=== PATIENT | female | born 1985 | race African-American/Black ===

== ENCOUNTER 2017-03-16 13:02 | Emergency (ER) | payer BC ==
[2017-03-16 13:10] VITALS: BP 105/69
[2017-03-16] MEDS ORDERED: MOTRIN PO ONE (13:16)
[2017-03-16] MEDS ORDERED: AFRIN NS ONE (13:18)
[2017-03-16] MEDS ORDERED: AUGMENTIN 875 MG PO ONE (13:19)
--- NOTE | 2017-03-16 13:19 | Emergency Department Report ---
- General Chief Complaint: Upper Respiratory Infection Stated Complaint: SINUSITIS,NASAL INFLAMMATION Time Seen by Provider: 03/16/17 13:12 Source: patient Mode of arrival: Ambulatory Limitations: No Limitations - History of Present Illness Initial Comments: 31-year-old female past medical history sinusitis with deviated septum presents with complaint of sinus congestion nasal discharge or rhinorrhea subjective fever chills. Patient states that she has had sinusitis in the past and this feels similar to her prior episodes. Denies any nausea or vomiting is complaining of sinus pain and congestion. States she has sinus surgery for correction of a deviated septum approximately one year ago MD Complaint: cough, rhinorrhea, nasal congestion, sinus pain Onset/Timin -: days(s) Severity: moderate Severity scale (0 -10): 6 Consistency: constant Improves With: NSAID Associated Symptoms: fever, rhinorrhea, nasal congestion - Related Data Previous Rx's Medication Instructions Recorded Last Taken Type Gentamicin 0.3% Ophth Soln 2 drops OP Q4H 5 Days 11/03/14 Unknown Rx Amoxicillin/K Clav Tab [Augmentin 1 tab PO Q12HR #14 tab 03/16/17 Unknown Rx 875 mg] Azelastine 0.1% (Nf) [Astelin (Nf)] 137 mcg NS 2XWHS PRN #1 bottle 03/16/17 Unknown Rx Fluticasone [Flonase] 1 spray NS QDAY PRN #1 bottle 03/16/17 Unknown Rx Ibuprofen [Motrin] 600 mg PO Q8H PRN #30 tablet 03/16/17 Unknown Rx Loratadine [Claritin] 10 mg PO DAILY #30 tablet 03/16/17 Unknown Rx Allergies Allergy/AdvReac Type Severity Reaction Status Date / Time No Known Allergies Allergy Unverified 11/03/14 21:52 ED Review of Systems ROS: Stated complaint: SINUSITIS,NASAL INFLAMMATION Other details as noted in HPI ENT: congestion ED Past Medical Hx - Past Medical History Previous Medical History?: No - Surgical History Past Surgical History?: No - Social History Smoking Status: Never Smoker Substance Use Type: None - Medications Home Medications: Home Medications Medication Instructions Recorded Confirmed Last Taken Type Gentamicin 0.3% Ophth Soln 2 drops OP Q4H 5 Days 11/03/14 Unknown Rx Amoxicillin/K Clav Tab [Augmentin 1 tab PO Q12HR #14 tab 03/16/17 Unknown Rx 875 mg] Azelastine 0.1% (Nf) [Astelin (Nf)] 137 mcg NS 2XWHS PRN #1 bottle 03/16/17 Unknown Rx Fluticasone [Flonase] 1 spray NS QDAY PRN #1 bottle 03/16/17 Unknown Rx Ibuprofen [Motrin] 600 mg PO Q8H PRN #30 tablet 03/16/17 Unknown Rx Loratadine [Claritin] 10 mg PO DAILY #30 tablet 03/16/17 Unknown Rx ED Physical Exam - General Limitations: No Limitations General appearance: alert, in no apparent distress - Head Head exam: Present: atraumatic, normocephalic - Eye Eye exam: Present: normal appearance, PERRL, EOMI - ENT ENT exam: Present: mucous membranes moist - Expanded ENT Exam Expanded Ear exam: Present: other (nasal turbinates injected, no septal hematoma, + maxillary sinus tenderness) - Neck Neck exam: Present: normal inspection - Respiratory Respiratory exam: Present: normal lung sounds bilaterally. Absent: respiratory distress - Cardiovascular Cardiovascular Exam: Present: regular rate, normal rhythm. Absent: systolic murmur, diastolic murmur, rubs, gallop - GI/Abdominal GI/Abdominal exam: Present: soft, normal bowel sounds - Extremities Exam Extremities exam: Present: normal inspection, full ROM - Back Exam Back exam: Present: normal inspection, full ROM - Neurological Exam Neurological exam: Present: alert, oriented X3 - Psychiatric Psychiatric exam: Present: normal affect, normal mood - Skin Skin exam: Present: warm, dry, intact, normal color. Absent: rash ED Course Vital Signs 03/16/17 13:07 Temperature 98.7 F Pulse Rate 110 H Respiratory 16 Rate Blood Pressure 105/69 O2 Sat by Pulse 100 Oximetry ED Medical Decision Making - Medical Decision Making A/P: Sinusitis 1- 2- 3- 4- 5- Critical care attestation.: If time is entered above; I have spent that time in minutes in the direct care of this critically ill patient, excluding procedure time. ED Disposition Clinical Impression: Sinusitis, acute Qualifiers: Sinusitis location: maxillary Recurrence: recurrent Qualified Code(s): J01.01 - Acute recurrent maxillary sinusitis Disposition: DISCHARGED TO HOME OR SELFCARE Is pt being admited?: No Does the pt Need Aspirin: No Condition: Stable Instructions: Sinusitis (ED), Acute Bacterial Rhinosinusitis (ED) Prescriptions: Amoxicillin/K Clav Tab [Augmentin 875 mg] 1 tab PO Q12HR #14 tab Azelastine 0.1% (Nf) [Astelin (Nf)] 137 mcg NS 2XWHS PRN #1 bottle PRN Reason: Congestion Fluticasone [Flonase] 1 spray NS QDAY PRN #1 bottle PRN Reason: Nasal Congestion Ibuprofen [Motrin] 600 mg PO Q8H PRN #30 tablet PRN Reason: Pain Loratadine [Claritin] 10 mg PO DAILY #30 tablet Referrals: [facility] [Provider Group] - 3-[facility] - 3-5 Days DOUGLAS ZHANG MD [Staff Physician] - 3-5 Days Time of Disposition: 13:22
[2017-03-16] MEDS ORDERED: DECADRON IM ONE (16:30)
== END 2017-03-16 17:19 | disposition home or self-care (01) ==
LOC: ED 13:02
DX: J01.01 Acute recurrent maxillary sinusitis (principal)
CPT/HCPCS: 96372; 99282; J1100

== ENCOUNTER 2017-08-15 12:08 | Emergency (ER) | payer BC ==
[2017-08-15 12:22] VITALS: BP 115/80
--- NOTE | 2017-08-15 13:37 | XRay Report ---
ABDOMINAL SERIES WITH CXR THREE VIEWS: 08/15/17 12:08:00 CLINICAL: Abdominal pain. FINDINGS: Supine upright views demonstrate a normal bowel gas pattern . No distended bowel or air-fluid levels. No pneumoperitoneum. No mass or suspicious calcifications.Lumbar levoscoliosis. Normal heart and lungs. Thoracic dextroscoliosis. IMPRESSION: Negative chest and abdomen.
--- NOTE | 2017-08-15 13:39 | XRay Report ---
SOFT TISSUE NECK TWO VIEWS: 08/15/17 12:08:00 CLINICAL: Swallowed foreign body. FINDINGS: Normal bones and soft tissues. Laryngeal cartilage calcification at L4-5. No foreign body. No soft tissue air or mediastinal air. IMPRESSION: Negative for foreign body.
--- NOTE | 2017-08-15 14:02 | Emergency Department Report ---
ED Abdominal Pain HPI - General Chief Complaint: Chest Pain Stated Complaint: SWOLLOW FOREIGN OBJECTS,CHEST PAIN Time Seen by Provider: 08/15/17 12:49 Source: patient Mode of arrival: Ambulatory Limitations: No Limitations - History of Present Illness Initial Comments: 31-year-old female past medical history scoliosis presents with complaint of esophageal discomfort in central chest. Patient states that part of her metallic braces dislodged and she swallowed the segments which was less than 2 cm in length Th night, approximately 48 hours ago. Patient is awake alert oriented speaking in full sentences states she has been eating and drinking without significant difficulty since this event. Denies any bloody vomitus denies any melena denies any hematochezia. Denies abdominal pain but does state she is having intermittent esophageal burning. Denies nausea or vomiting. Denies shortness of breath. No visible trismus or drooling on clinical exam during interview. Patient appears comfortable in examination room. MD Complaint: abdominal pain Onset/Timin -: days(s) Severity: moderate Severity scale (0 -10): 5 Quality: burning Improves With: nothing Worsens With: nothing Associated Symptoms: denies other symptoms - Related Data Previous Rx's Medication Instructions Recorded Last Taken Type Gentamicin 0.3% Ophth Soln 2 drops OP Q4H 5 Days 11/03/14 Unknown Rx Amoxicillin/K Clav Tab [Augmentin 1 tab PO Q12HR #14 tab 03/16/17 Unknown Rx 875 mg] Azelastine 0.1% (Nf) [Astelin (Nf)] 137 mcg NS 2XWHS PRN #1 bottle 03/16/17 Unknown Rx Fluticasone [Flonase] 1 spray NS QDAY PRN #1 bottle 03/16/17 Unknown Rx Ibuprofen [Motrin] 600 mg PO Q8H PRN #30 tablet 03/16/17 Unknown Rx Loratadine [Claritin] 10 mg PO DAILY #30 tablet 03/16/17 Unknown Rx Famotidine [Pepcid] 20 mg PO BID PRN #30 tablet 08/15/17 Unknown Rx Lidocaine Viscous 2% 15 ml MM Q6H PRN #1 bottle 08/15/17 Unknown Rx Sucralfate [Carafate] 1 gm PO Q6HR PRN #1 bottle 08/15/17 Unknown Rx Allergies Allergy/AdvReac Type Severity Reaction Status Date / Time No Known Allergies Allergy Unverified 11/03/14 21:52 ED Review of Systems ROS: Stated complaint: SWOLLOW FOREIGN OBJECTS,CHEST PAIN Other details as noted in HPI Constitutional: denies: chills, fever Eyes: denies: eye pain, eye discharge, vision change ENT: denies: ear pain, throat pain Respiratory: denies: cough, shortness of breath, wheezing Cardiovascular: chest pain. denies: palpitations Endocrine: no symptoms reported Gastrointestinal: denies: abdominal pain, nausea, diarrhea Genitourinary: denies: urgency, dysuria, discharge Musculoskeletal: denies: back pain, joint swelling, arthralgia Skin: denies: rash, lesions Neurological: denies: headache, weakness, paresthesias Psychiatric: denies: anxiety, depression Hematological/Lymphatic: denies: easy bleeding, easy bruising ED Past Medical Hx - Past Medical History Previous Medical History?: No - Surgical History Additional Surgical History: sinus - Social History Smoking Status: Never Smoker Substance Use Type: None - Medications Home Medications: Home Medications Medication Instructions Recorded Confirmed Last Taken Type Gentamicin 0.3% Ophth Soln 2 drops OP Q4H 5 Days 11/03/14 Unknown Rx Amoxicillin/K Clav Tab [Augmentin 1 tab PO Q12HR #14 tab 03/16/17 Unknown Rx 875 mg] Azelastine 0.1% (Nf) [Astelin (Nf)] 137 mcg NS 2XWHS PRN #1 bottle 03/16/17 Unknown Rx Fluticasone [Flonase] 1 spray NS QDAY PRN #1 bottle 03/16/17 Unknown Rx Ibuprofen [Motrin] 600 mg PO Q8H PRN #30 tablet 03/16/17 Unknown Rx Loratadine [Claritin] 10 mg PO DAILY #30 tablet 03/16/17 Unknown Rx Famotidine [Pepcid] 20 mg PO BID PRN #30 tablet 08/15/17 Unknown Rx Lidocaine Viscous 2% 15 ml MM Q6H PRN #1 bottle 08/15/17 Unknown Rx Sucralfate [Carafate] 1 gm PO Q6HR PRN #1 bottle 08/15/17 Unknown Rx ED Physical Exam - General Limitations: No Limitations General appearance: alert, in no apparent distress - Head Head exam: Present: atraumatic, normocephalic - Eye Eye exam: Present: normal appearance, PERRL, EOMI - ENT ENT exam: Present: normal orophraynx (no visible signs of trauma to oropharynx on inspection), mucous membranes moist - Neck Neck exam: Present: normal inspection - Respiratory Respiratory exam: Present: normal lung sounds bilaterally. Absent: respiratory distress - Cardiovascular Cardiovascular Exam: Present: regular rate, normal rhythm. Absent: systolic murmur, diastolic murmur, rubs, gallop - GI/Abdominal GI/Abdominal exam: Present: soft (abdomen soft nontender nondistended), normal bowel sounds - Extremities Exam Extremities exam: Present: normal inspection - Back Exam Back exam: Present: normal inspection - Neurological Exam Neurological exam: Present: alert, oriented X3, CN II-XII intact, normal gait - Psychiatric Psychiatric exam: Present: normal affect, normal mood - Skin Skin exam: Present: warm, dry, intact, normal color. Absent: rash ED Course Vital Signs 08/15/17 12:15 Temperature 97.9 F Pulse Rate 89 Respiratory 16 Rate Blood Pressure 115/80 O2 Sat by Pulse 97 Oximetry ED Medical Decision Making - Medical Decision Making A/P: Foreign body GI tract, esophageal discomfort 1-patient has minimal to no odynophagia, is able to drink and eat without significant discomfort. Patient has no dysphagia is able to swallow without difficulty 2-case discussed with Dr. Nation, GI Consulted Dr. Dixon who also interviewed and examined the patient. As per GI no indication for acute intervention at this time as patient is able to tolerate by mouth intake without significant difficulty. 3-antacids, by mouth Carafate 4- follow up with GI this week 5- x-rays of soft tissue neck chest and abdomen show no metallic foreign body 6- patient given strict instructions to return to the ED for any blood in stool any vomiting, hematochezia hematemesis, difficulty swallowing it was a solid, shortness of breath. Critical care attestation.: If time is entered above; I have spent that time in minutes in the direct care of this critically ill patient, excluding procedure time. ED Disposition Clinical Impression: Swallowed foreign body Qualifiers: Encounter type: initial encounter Qualified Code(s): T18.9XXA - Foreign body of alimentary tract, part unspecified, initial encounter Disposition: TO HOME OR SELFCARE Is pt being admited?: No Does the pt Need Aspirin: No Condition: Stable Instructions: Foreign Body Ingestion (ED) Prescriptions: Famotidine [Pepcid] 20 mg PO BID PRN #30 tablet PRN Reason: Indigestion Lidocaine Viscous 2% 15 ml MM Q6H PRN #1 bottle PRN Reason: Indigestion Sucralfate [Carafate] 1 gm PO Q6HR PRN #1 bottle PRN Reason: Indigestion Referrals: MILY DIXON MD [Staff Physician] - 3-5 Days [facility] [Provider Group] - 3-5 Days Forms: Work/School Release Form(ED) Time of Disposition: 15:25
[2017-08-15] MEDS ORDERED: LIDOCAINE VISCOUS 2% PO ONE (14:51)
[2017-08-15] MEDS ORDERED: ALUM-MAG HYDROX-SIMETH 200-200-20MG/5ML PO ONE (14:53)
[2017-08-15] MEDS ORDERED: PEPCID PO ONE (14:53)
== END 2017-08-15 15:36 | disposition home or self-care (01) ==
LOC: ED 12:08
DX: T18.9XXA Foreign body of alimentary tract, part unspecified, initial encounter (principal); R10.9 Unspecified abdominal pain; X58.XXXA Exposure to other specified factors, initial encounter; Y93.89 Activity, other specified; Y92.89 Other specified places as the place of occurrence of the external cause; Y99.8 Other external cause status
CPT/HCPCS: 70360; 74022

== ENCOUNTER 2018-08-04 11:25 | Outpatient (CLI) | payer BC ==
[2018-08-04 12:05] LABS: Basophils % (Auto) 0.3 % (0.0-1.8); Eosinophils # (Auto) 0.1 K/mm3 (0.0-0.4); Eosinophils % (Auto) 1.3 % (0.0-4.3); Hemoglobin 14.9 gm/dl (10.1-14.3); Lymphocytes # (Auto) 2.5 K/mm3 (1.2-5.4); Lymphocytes % (Auto) 22.9 % (13.4-35.0); Mean Corpuscular HGB Conc 35 % (30-34); Mean Corpuscular Hemoglobin 32 pg (28-32); Mean Corpuscular Volume 92 fl (79-97); Monocytes # (Auto) 0.6 K/mm3 (0.0-0.8); Monocytes % (Auto) 5.4 % (0.0-7.3); Platelet Count 259 K/mm3 (140-440); Red Blood Count 4.68 M/mm3 (3.65-5.03); Red Cell Distribution Width 12.7 % (13.2-15.2)
[2018-08-04 12:23] LABS: Alanine Aminotransferase 20 units/L (7-56); Albumin 4.5 g/dL (3.9-5); BUN/Creatinine Ratio 30; Blood Urea Nitrogen 9 mg/dL (7-17); Chol/HDL Ratio 4.18 %; HDL Cholesterol 37 mg/dL (40-59); Hemolysis Index 31; LDL Cholesterol,Direct 104 mg/dL (50-130)
== END 2018-08-04 11:26 | disposition home or self-care (01) ==
LOC: LAB 11:25
PROVIDERS: ATTEND Internal Medicine
DX: E78.2 Mixed hyperlipidemia (principal)
CPT/HCPCS: 36415; 80053; 80061; 84443; 85025

== ENCOUNTER 2021-09-18 11:43 | Emergency (ER) | payer BC ==
[2021-09-18 11:53] VITALS: BP 141/82
--- NOTE | 2021-09-18 12:25 | Emergency Department Report ---
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 The patient rolled her foot and ankle and since that time has been having pain to the posterior and bilateral ankle with some swelling. She has been ambulating and bearing weight but has a limp secondary to the pain. She denies any past medical history. She denies any bruising, redness or skin color changes. ED Past Medical Hx - Surgical History Additional Surgical History: sinus - Social History Smoking Status: Never Smoker Substance Use Type: None - Medications Home Medications: Home Medications Medication Instructions Recorded Confirmed Last Taken Type Gentamicin 0.3% Ophth Soln 2 drops OP Q4H 5 Days bottle 11/03/14 Unknown Rx Amoxicillin/K Clav Tab [Augmentin 1 tab PO Q12HR #14 tab 03/16/17 Unknown Rx 875 mg] Azelastine 0.1% (Nf) [Astelin (Nf)] 137 mcg NS 2XWHS PRN #1 bottle 03/16/17 Unknown Rx Fluticasone [Flonase] 1 spray NS QDAY PRN #1 bottle 03/16/17 Unknown Rx Ibuprofen [Motrin] 600 mg PO Q8H PRN #30 tablet 03/16/17 Unknown Rx Loratadine (Nf) [Claritin] 10 mg PO DAILY #30 tablet 03/16/17 Unknown Rx Famotidine [Pepcid] 20 mg PO BID PRN #30 tablet 08/15/17 Unknown Rx Lidocaine Viscous 2% 15 ml MM Q6H PRN #1 bottle 08/15/17 Unknown Rx Sucralfate [Carafate] 1 gm PO Q6HR PRN #1 bottle 08/15/17 Unknown Rx ED Review of Systems ROS: Stated complaint: LT LEG INJURY Other details as noted in HPI Comment: All other systems reviewed and negative Constitutional: denies: chills, fever Genitourinary: denies: dysuria, discharge Musculoskeletal: joint swelling, arthralgia Skin: denies: rash, change in color Neurological: denies: numbness, paresthesias Physical Exam - Physical Exam Vital Signs: Vital Signs 09/18/21 11:52 Temperature 98 F Pulse Rate 90 Respiratory 18 Rate Blood Pressure 141/82 [Left] O2 Sat by Pulse 97 Oximetry Physical Exam: GENERAL: The patient is well-developed well-nourished. HENT: Normocephalic. Atraumatic. Patient has moist mucous membranes. EYES: Extraocular motions are intact. NECK: Supple. Trachea is midline. SKIN: Skin is warm and dry. Mild nonpitting swelling of the left ankle. NEURO: The patient is awake, alert, and oriented. The patient is cooperative. The patient has no focal neurologic deficits. Normal speech. MUSCULOSKELETAL: There is tenderness to palpation of the circumferential left ankle. Dorsalis pedis pulse +2/4 and capillary refill less than 2 seconds to the affected left lower extremity. Full range of motion of the affected left foot and ankle. ED Course Vital Signs 09/18/21 11:52 Temperature 98 F Pulse Rate 90 Respiratory 18 Rate Blood Pressure 141/82 [Left] O2 Sat by Pulse 97 Oximetry ED Medical Decision Making - Radiology Data Radiology results: image reviewed interpreted by me: X-ray of the left ankle does not show any fracture, dislocation, or any acute process. - Medical Decision Making This patient presents with left ankle pain after twisting her ankle coming down the stairs about 4 to 5 days ago. There is some mild swelling but no ecchymosis. She appears neurovascularly intact. X-ray does not show any fracture or dislocation. She is in a Jonas wrap and will be placed on crutches to be nonweightbearing. She has been given outpatient referrals for orthopedics. Critical Care Time: No Critical care attestation.: If time is entered above; I have spent that time in minutes in the direct care of this critically ill patient, excluding procedure time. ED Disposition Clinical Impression: Left ankle sprain Qualifiers: Encounter type: initial encounter Involved ligament of ankle: unspecified ligament Qualified Code(s): S93.402A - Sprain of unspecified ligament of left ankle, initial encounter Disposition: 01 HOME / SELF CARE / HOMELESS Is pt being admited?: No Condition: Stable Instructions: Ankle Sprain, Elastic Bandage and RICE Therapy Additional Instructions: Please follow-up with your orthopedist. I have given you a referral for a local orthopedist, Dr. Whittaker, to follow-up regarding your left ankle pain and sprain. I have given you crutches so that you can be nonweightbearing to the affected left ankle. Return to the emergency department with any worsening of your symptoms, new or concerning symptoms not addressed during this current emergency department visit, or with any acute distress. Referrals: ELVIN WHITTAKER MD [Staff Physician] - 3-5 Days Forms: Work/School Release Form(ED) Time of Disposition: 12:54
--- NOTE | 2021-09-18 13:20 | XRay Report ---
LEFT ANKLE 3 VIEW(S) INDICATION / CLINICAL INFORMATION: ankle pain . Twisted left ankle 5 days ago. COMPARISON: None available. FINDINGS: BONES / JOINT(S): No acute fracture or subluxation. No significant arthritis. SOFT TISSUES: No significant abnormality. ADDITIONAL FINDINGS: None. Signer Name: Loc Rangel MD Signed: 09/18/2021 1:16 PM Workstation Name: [id number]
== END 2021-09-18 13:26 | disposition home or self-care (01) ==
LOC: ED 11:43
DX: S93.402A Sprain of unspecified ligament of left ankle, initial encounter (principal); Z98.890 Other specified postprocedural states; W18.40XA Slipping, tripping and stumbling without falling, unspecified, initial encounter; Y93.89 Activity, other specified; Y92.89 Other specified places as the place of occurrence of the external cause; Y99.8 Other external cause status
CPT/HCPCS: 99283